=== PATIENT | female | born 1955 | race Caucasian/White ===

== ENCOUNTER 2016-09-16 05:01 | Emergency (ER) | payer SELFPAY ==
[2016-09-16 05:16] VITALS: TEMP 97.7; BMI 24.1
[2016-09-16] MEDS ORDERED: PSEUDOEPHEDRINE 30 MG TAB PO ONE (05:25)
[2016-09-16] MEDS ORDERED: AZITHROMYCIN 250 MG TAB PO STA (05:25)
--- NOTE | 2016-09-16 05:27 | EDPRACDOC ---
- General Information Chief Complaint: Flu-Like Symptoms Stated Complaint: SINUS PROBLEM/ THROAT PAIN Time Seen by Provider: 09/16/16 05:14 Information Source: Patient Home Medications: Home Medications Lisinopril/Hydrochlorothiazide [Lisinopril-Hctz 10-12.5 mg Tab] 1 tab PO DAILY 08/18/14 Hydrocodone Bit/Acetaminophen [[place] 5-325 Tablet] 1 each PO Q4H #10 tab Azithromycin 250 mg PO DAILY #4 tablet 09/16/16 Benzonatate [Tessalon Perle] 100 mg PO TID PRN #20 capsule 09/16/16 Pseudoephedrine HCl 60 mg PO Q6 PRN #20 tablet 09/16/16 Allergies/Adverse Reactions: Allergies Allergy/AdvReac Type Severity Reaction Status Date / Time Sulfa (Sulfonamide Allergy Mild Nausea only Verified 09/28/15 19:39 Antibiotics) codeine Allergy Nausea/Vomi Verified 09/28/15 19:39 ting - History of Present Illness Onset: 1 week HPI: PT PRESENTS WITH NASAL DISCHARGE, COUGH, AND FACIAL PRESSURE FOR THE LAST FEW WEEKS. SHE SAYS SHE HAS FELT LIKE SOMETHING IS GROWING IN HER THROAT FOR THE LAST FEW YEARS. Current Symptoms: Reports: Cough, Nasal Symptoms. Denies: Fever Shortness of Breath: Mild Cough: Reports: Non-productive Rhinorrhea: Reports: Clear Fever Severity/Quality: Reports: no fever Associated Signs & Symptoms:: Reports: Cough, Nasal Symptoms. Denies: Fever, Vomiting ED Past Medical History - History Reviewed Yes Nurses notes reviewed and agree except as marked - Patient Medical History Cardiac History: Reports: Hypertension GI/ History: Reports: Gastroesophageal Reflux Psychological History: Denies: Depression Surgical History: Reports: Hysterectomy - Social Medical History Smoking Status: Heavy tobacco smoker (5 or more cigarettes/day or daily pipe/ cigar) Lives In: Home EDM Review of Systems - Review of Systems ROS Negative Except as Marked: Yes All systems reviewed and were negative except as marked Constitutional: Fatigue. negative: Fever Throat: Other (FULLNESS FOR THE LAST FEW YEARS.) Nose: Congestion, Discharge Respiratory: Shortness of Breath - Physical Exam Constitutional: Alert Oriented to: Time, Person, Place Last recorded Vital Signs: Last Vital Signs Temp 97.7 F 09/16/16 05:12 Pulse 89 09/16/16 05:12 Resp 20 09/16/16 05:12 BP 153/70 09/16/16 05:12 Pulse Ox 96 09/16/16 05:12 Oxygen Pulse Oxygen Saturation 96 O2 Device Oxygen Flow Rate Fraction of Inspired Oxygen ( FIO2) - HEENT Head: negative: Deformity, Laceration Eye Exam: negative: Conjunctival Injection, Pale Conjunctiva Oropharynx: Red. negative: Drooling, Exudate, Membranes Dry, Tonsillar Hypertrophy, [place] Nose: Congestion, Discharge Neck: negative: Bony Tenderness, Crepitus, Limited ROM, Lymphadenopathy, Tracheal Deviation - Respiratory/Cardiovascular Respiratory: Normal - CTA. negative: Accessory Muscle Use, Diminished, Tachypnea Cardiovascular: negative: Bradycardia, Tachycardia, Irregular - Integumentary Skin: Warm, Dry. negative: Rash - Neurologic Memory Impaired: Normal Motor Function: Normal Mood Description: Anxious Thought: Coherent Perception: Normal Decision Time to Discharge: 05:28 - Departure Yes I personally saw and evaluated the patient. Disposition: Home Condition: Stable Final Diagnosis: Sinusitis Qualifiers: Sinusitis location: unspecified location Chronicity: acute Recurrence: non- recurrent Qualified Code(s): J01.90 - Acute sinusitis, unspecified Instructions: Sinusitis (ED) Education/Counseling Given To: Patient Education/Counseling Given Regarding: Diagnosis, Treatment, Prognosis, Follow Up Referrals: None,No Provider [Primary Care Provider] - One Week Sumit Shannon DO [Staff Physician] - As Needed Delmy Toth MD [Staff Physician] - As Needed Prescriptions: Azithromycin 250 mg PO DAILY #4 tablet Benzonatate [Tessalon Perle] 100 mg PO TID PRN #20 capsule PRN Reason: Cough Pseudoephedrine HCl 60 mg PO Q6 PRN #20 tablet PRN Reason: Congestion
[2016-09-16] MEDS ORDERED: BENZONATATE 100 MG PERLES PO ONE (05:29)
[2016-09-16 06:02] VITALS: BP 150/70; PULSE 73
== END 2016-09-16 06:00 | disposition home or self-care (01) ==
LOC: ED 05:01
DX: J01.90 Acute sinusitis, unspecified (principal)
CPT/HCPCS: 99283; J3490